=== PATIENT | male | born 1955 | race Caucasian/White ===

== ENCOUNTER 2017-01-21 08:04 | Emergency (ER) | payer OTHER ==
[~2017-01-21] VITALS: Ht 188 cm; Wt 79.5 kg
[2017-01-21 08:06] VITALS: BP 119/72; PULSE 68; TEMP 98.2; O2SAT 99
--- NOTE | 2017-01-21 08:45 | PD ---
HPI Chief Complaint: Laceration/Skin Injury Time Seen by Provider: 08:45 Travel History International Travel<30 days: No Contact w/Intl Traveler<30days: No Traveled to known affect area: No History of Present Illness HPI 61-year-old male presents emergency Department with complaint of laceration to his left elbow that occurred last night while playing basketball. He said he fell backward and landed on his elbow. He denies hitting his head or loss of consciousness. Denies neck pain or back pain. Denies elbow pain. Denies paresthesias, decreased range of motion, decreased strength, loss of sensation to the affected extremity. Is up-to-date on his tetanus vaccination. Denies fever, chills, nausea, vomiting. No known allergies. No other modifying factors or associated signs and symptoms. PFSH Social History Tobacco Use: No Allergies-Medications (Allergen,Severity, Reaction): Coded Allergies: No Known Allergies (Unverified , 01/02/17) Reported Meds & Prescriptions Reported Meds & Active Scripts Active Ibuprofen 600 Mg Tab 600 Mg PO Q6H PRN Review of Systems Except as stated in HPI: all other systems reviewed are Neg Physical Exam Narrative GENERAL: Well-nourished, well-developed male patient, in no acute distress SKIN: Warm and dry. Approximately one and half centimeter L-shaped laceration to the left elbow; without erythema, edema; with minimal amount of serosanguineous drainage. HEAD: Atraumatic. Normocephalic. EYES: Pupils equal and round. No scleral icterus. No injection or drainage. ENT: Mucosa pink and moist. Airway patent. NECK: Trachea midline. CARDIOVASCULAR: Regular rate. RESPIRATORY: No accessory muscle use. GASTROINTESTINAL: Flat. MUSCULOSKELETAL: Left elbow is mildly edematous and without erythema, ecchymosis ; with full range of motion, both flexion and extension; no tenderness on palpation; no obvious deformity. Left upper extremity is supple and non-tense with 2+ radial pulses and sensory intact and with full range of motion and strength. No obvious deformities. No clubbing. No cyanosis. No edema. NEUROLOGICAL: Awake and alert. Oriented 3. No obvious cranial nerve deficits. Motor grossly within normal limits. Normal speech. PSYCHIATRIC: Appropriate mood and affect; insight and judgment normal. Data Data Last Documented VS Vital Signs Date Time Temp Pulse Resp B/P Pulse Ox O2 Delivery O2 Flow Rate FiO2 4/18/17 08:06 98.2 68 119/72 99 Orders Lidocai-Epi 1%-1:100,000 Inj (Xylocaine- (01/21/17 09:00) MDM Medical Decision Making Medical Screen Exam Complete: Yes Emergency Medical Condition: Yes Medical Record Reviewed: Yes Differential Diagnosis Laceration, contusion, abrasion, less likely elbow fracture or dislocation Narrative Course 61-year-old male with left elbow laceration. Up-to-date on tetanus vaccination. He did fall injuring his elbow. He denies hitting his head or loss of consciousness. Denies neck pain or back pain. I do not suspect fracture dislocation and feel that imaging is not necessary at this time and the patient does agree. See my Procedure note laceration repair. Ibuprofen prescribed for home. Patient verbalizes understanding and agreement with treatment plan. Patient is medically cleared and stable for discharge. Discussed reasons to return to the emergency department. Instructed patient to follow up with primary care provider. Patient agrees with treatment plan. The patients vital signs are stable and the patient is stable for outpatient follow- up and treatment. Patient discharged home, stable and in no acute distress. Procedures Procedure Narrative LACERATION LOCATION: Left elbow LENGTH: 1-1/2 cm NUMBER OF STITCHES/TARAH: 3 simple interrupted sutures REPAIR: The area of the laceration was prepped with Betadine and sterilely draped. The laceration was infiltrated with 1% lidocaine with epinephrine. The wound was copiously irrigated and explored without evidence of foreign body, tendon injury or neurovascular injury. The wound was closed using 4-0 Ethilon. This was a single layer repair. A sterile dressing was applied. The patient was advised to keep the dressing clean and dry. Patient tolerated the procedure well. Diagnosis Primary Impression: Laceration of left elbow Qualified Code: S51.012A - Laceration of left elbow, initial encounter Referrals: Primary Care Physician Patient Instructions: Care For Your Stitches (ED), General Instructions Departure Forms: Tests/Procedures, Work Release Enter return to work date: Jan 22, 2017 Additional Instructions: Keep area clean and dry Limit left elbow activity to decrease risk of sutures coming undone Ibuprofen or Tylenol as directed and as needed for pain and inflammation Ice pack to area as needed to decrease pain Return to the emergency department or follow-up with primary care provider in 10 -14 days for suture removal Follow up with primary care provider Return to the emergency department immediately with worsening of symptoms, particularly if reddened streaks up or down the affected extremity from the suture site, fever, numbness/tingling in the affected extremity, loss of sensation in the affected extremity, severe swelling of the affected Med/Other Pt SpecificInfo: Prescription(s) given Scripts Ibuprofen 600 Mg [id number] Mg PO Q6H PRN (PAIN SCALE 1 TO 10) #20 TAB Ref 0 Prov:Meredith Carlos 01/21/17 Disposition: 01 DISCHARGE HOME Condition: Stable Meredith Carlos Jan 21, 2017 08:45
[2017-01-21] MEDS ORDERED: IBUP-232 PO (08:55)
[2017-01-21] MEDS ORDERED: LIDOCAINE 1%/EPINEPHrine 1:100,000 SOLN 20 ML VIAL INFIL ONE (09:00)
== END 2017-01-21 09:15 | disposition home or self-care (01) ==
LOC: NEPK 08:04
DX: S51.012A Laceration without foreign body of left elbow, initial encounter (principal); W18.39XA Other fall on same level, initial encounter; Y93.67 Activity, basketball
CPT/HCPCS: 12001